=== PATIENT | male | born 1995 | race Caucasian/White ===

== ENCOUNTER 2024-10-01 20:38 | Emergency (ER) | payer SELFPAY ==
[2024-10-01 20:46] VITALS: BP 128/61; PULSE 68; RESP 18; TEMP 36.9; O2SAT 98; BMI 25.0
--- NOTE | 2024-10-01 20:48 | ED.GENADULT ---
HPI - General Adult General Chief complaint: General Medical Stated complaint: needs STD testing Time Seen by Provider: 10/01/24 23:38 History of Present Illness ED Provider: Mauro CEJA narrative: The patient is a 29-year-old male who says that over the last couple of months he has had several sexual encounters with a person who was not his regular girlfriend. His last intercourse with this person was about 2 weeks ago. He says that he recently received a cryptic message from her that she might have a sexually transmitted infection. He does not know anything more specific. He comes to the emergency room for testing related to any possible sexually transmitted disease that can be tested for. He says that he also has a regular girlfriend and is concerned about whether he might be at risk of giving his regular girlfriend any infection. The patient has not had any symptoms of dysuria or testicular pain or fever, sweats, chills or any other symptoms. No penile discharge. Related Data Allergies Allergy/AdvReac Type Severity Reaction Status Date / Time No Known Allergies Allergy Verified 10/01/24 20:50 Review of Systems Review of Systems: Yes all other systems are reviewed and are negative [facility] Social History Social History Unable to assess alcohol history related to: Unknown Use of substances other than those prescribed or required for medical reasons: Unknown Advance Directives: No Advance Directives Information Provided: No Do you have a plan to hurt others: No Plan Physical Exam ED Vital Signs: Vital Signs - 24 hr 10/02/24 00:18 Temperature 98.5 F Pulse Rate 68 Respiratory Rate 18 Blood Pressure 128/61 Pulse Oximetry 98 Oxygen Delivery Method Room Air BMI result Body Mass Index 25.0 Const Other: The patient looks as though he is an ordinarily healthy 29-year-old male. He does not appear ill or in distress in any way. HENMT Other: Face is symmetrical, mucous membranes moist Eyes Other: pupils are round equal, conjunctivae clear, no scleral icterus, extraocular movements intact General: appearance normal, both eyes and all related structures Neck Neck: Yes normal visual inspection and Yes full ROM Resp Effort & Inspection: normal respiratory effort Skin General skin exam: no rashes or lesions noted Neuro Other: the patient is awake and alert with normal mental status. Grossly intact cranial nerves. He moves extremities normally and appropriately. He has normal gait. Extrem Other: No peripheral edema Course Course Course Narrative: RME: 29 yold male presens to the ED for STD check. A sexual partner advised him to get tested because she has something but would not tell him what it is. Patient is asymptomatic. Chlamydia gonorrhea and syphilis tests ordered Medical Decision Making Medical Decision Making MDM Narrative: the patient is a 29-year-old generally healthy male who presents for sexually transmitted infection testing. He is asymptomatic. He is concerned because he has a regular golf on but he also had several sexual encounters without other woman recently. the last time he had a sexual encounter with this other woman was about 2 weeks ago. Sexual encounters is included only vaginal intercourse. The patient has no symptoms of a sexual transmitted infection but he says that he received a message from the other woman that she might have a sexually transmitted infection and therefore he presents for testing. The urine sample was sent for GC and chlamydia testing. Blood testing was sent for HIV and syphilis screening. Given the absence of any symptoms and given that the patient looks entirely well no empiric treatment was offered. The patient will be discharged to be contacted if his results are positive. I told him he could call me in 24 hours as I will be working and I would give him the results over the phone. He was otherwise encouraged to get a primary care doctor or to follow up with [facility] for STI related concerns. Lab Data Labs: Lab Results 10/01/24 10/01/24 Range/Units 21:05 21:06 Urine Color Yellow Urine Appearance Clear Urine pH 7.0 (5.0-9.0) Ur Specific [place] 1.010 (1.005-1.025) Urine Protein Negative (Neg-Trace) mg/dL Urine Glucose (UA) Negative (Negative) mg/dL Urine Ketones Negative (Negative) mg/dL Urine Blood Negative (Negative) Urine Nitrite Negative (Negative) Ur Leukocyte Esterase Negative (Negative) T.pallidum Ab (EIA) Nonreactive (Nonreactive) Chlam trachomat DNA PCR NOT DETECTED (Not Detect.) HIV 1&2 Ab/P24 Ag 4thGn Nonreactive (Nonreactive) N.gonorrhoeae DNA (PCR) NOT DETECTED (Not Detect.) Discharge Plan Discharge Clinical Impression: Encounter for assessment of sexually transmitted infection exposure Patient Disposition: Home, Self-Care Additional Instructions: We have sent testing for gonorrhea, chlamydia, HIV, and syphilis. These tests will not result tonight. I will be working tomorrow night starting at 9PM. You may call [phone], option 0, to reach the emergency room. Ask to speak with Dr. Wade for your results. Please also work on getting a regular primary care doctor. Another option for STI testing is the [facility]. You may contact them in the future for any similar issues. Return to the emergency room if worse. Referrals: [facility] [Provider Group] Interventions: ED Discharge Assessment Last Done: 10/02/24 00:18 Discharge Date/Time: 10/02/24 00:18 Print Language: Bel[place]ian
[2024-10-01 21:13] LABS: Appearance Urine Clear; Color Urine Yellow; Glucose Urine UA Negative (Negative); Leukocyte Esterase Urine Negative (Negative); Nitrite Urine Negative (Negative); Urine Blood Negative (Negative); Urine Ketones Negative (Negative); Urine Protein Negative (Neg-Trace)
--- NOTE | 2024-10-02 00:17 | PC.NURSE ---
reviewed discharge instructions with pt. pt verbalized understanding, no sign of distress
[2024-10-02 00:18] VITALS: BP 128/61; PULSE 68; RESP 18; TEMP 36.9; O2SAT 98
[2024-10-02 04:23] LABS: Syphilis Screen Nonreactive (Nonreactive)
[2024-10-02 04:57] LABS: HIV Num 1 1.37 S/CO (0.00-0.99)
[2024-10-02 06:01] LABS: HIV AB/AG Nonreactive (Nonreactive); HIV Num 2 0.05 S/CO; HIV Num 3 0.05 S/CO
[2024-10-02 12:19] LABS: CT PCR NOT DETECTED (Not Detect.); NG PCR NOT DETECTED (Not Detect.)
== END 2024-10-02 00:18 | disposition home or self-care (01) ==
PROVIDERS: Physician Assistant; Emergency Provider Emergency Medicine
DX: Z20.2 Contact with and (suspected) exposure to infections with a predominantly sexual mode of transmission (principal)
CPT/HCPCS: 36415; 81003; 86780; 87389; 87491; 87591; 99283; 99284